=== PATIENT | male | born 2000 | race Two or more races ===

== ENCOUNTER 2022-11-08 21:25 | Emergency (ER) | payer OTHER ==
[~2022-11-08] VITALS: Ht 170.2 cm; Wt 113.6 kg
[2022-11-08 21:42] VITALS: BP 129/79
[2022-11-10] MEDS ORDERED: CEPH-510 PO (23:56)
== END 2022-11-09 00:03 | disposition home or self-care (01) ==
LOC: ER 21:25
DX: Z48.02 Encounter for removal of sutures (principal)

== ENCOUNTER 2022-11-10 22:29 | Emergency (ER) | payer OTHER ==
[~2022-11-10] VITALS: Ht 170.2 cm; Wt 256.0 kg
[2022-11-10 22:29] VITALS: BP 127/85
[2022-11-10] MEDS ORDERED: CEPH-510 PO (23:56)
== END 2022-11-11 01:39 | disposition home or self-care (01) ==
LOC: ER 22:29
DX: Z48.00 Encounter for change or removal of nonsurgical wound dressing (principal)